=== PATIENT | male | born 1990 | race Caucasian/White ===

== ENCOUNTER 2017-04-28 18:39 | Emergency (ER) | payer OTHER ==
[~2017-04-28 18:39] MED LIST: ABIL30TA5 PO; PROZ20CA11 PO; QUET300XR PO
[2017-04-28 18:49] VITALS: BP 123/68; PULSE 118; RESP 18; TEMP 97.8; O2SAT 96
[2017-04-28] MEDS ORDERED: DEPA500T3 PO (19:17)
[2017-04-28 19:36] LABS: AUTOMATED NEUTROPHIL # 6.5 TH/MM3 (1.8-7.7); BASOPHIL % 0.4 % (0.0-2.0); EOSINOPHIL # 0.1 TH/MM3 (0-0.4); EOSINOPHIL % 0.8 % (0.0-4.0); HEMATOCRIT 41.6 % (39.0-51.0); HEMOGLOBIN 13.6 GM/DL (13.0-17.0); LYMPH % 24.9 % (9.0-44.0); LYMPHOCYTE # 2.3 TH/MM3 (1.0-4.8); MEAN CELL VOLUME 81.9 FL (80.0-100.0); MEAN CORPUSCULAR HEMOGLOBIN 26.9 PG (27.0-34.0); MEAN CORPUSCULAR HGB CONC 32.8 % (32.0-36.0); MONO % 4.8 % (0.0-8.0); MONOCYTE # 0.5 TH/MM3 (0-0.9); NEUT % 69.1 % (16.0-70.0); PLATELET COUNT 288 TH/MM3 (150-450); RED BLOOD COUNT 5.08 MIL/MM3 (4.50-5.90); RED CELL DISTRIBUTION WIDTH 13.3 % (11.6-17.2); WHITE BLOOD COUNT 9.4 TH/MM3 (4.0-11.0)
[2017-04-28] MEDS ORDERED: ARIPiprazole 15 MG TAB PO ONE (19:45)
[2017-04-28 19:50] LABS: ALBUMIN 4.1 GM/DL (3.4-5.0); AST (GOT) 13 U/L (15-37); BICARBONATE 30.3 MEQ/L (21.0-32.0); BLOOD UREA NITROGEN 13 MG/DL (7-18); CALCIUM 9.3 MG/DL (8.5-10.1); CHLORIDE 104 MEQ/L (98-107); CREATININE 0.77 MG/DL (0.60-1.30); GLOMERULAR FILTRATION RATE 122 ML/MIN (>89); GLUCOSE,RANDOM 84 MG/DL (74-106); SODIUM (NA) 138 MEQ/L (136-145)
[2017-04-28 19:51] LABS: ALT (GPT) 19 U/L (12-78)
[2017-04-28 19:53] LABS: ALKALINE PHOSPHATASE 72 U/L (45-117); TOTAL BILIRUBIN ADULT 0.2 MG/DL (0.2-1.0); TOTAL PROTEIN 8.1 GM/DL (6.4-8.2)
--- NOTE | 2017-04-28 20:54 | PD ---
HPI Chief Complaint: Psychiatric Symptoms Time Seen by Provider: 19:51 Travel History International Travel<30 days: No Contact w/Intl Traveler<30days: No Traveled to known affect area: No History of Present Illness HPI 26-year-old male that presents to the ED for evaluation of Turcios act. Patient was Turcios acted by police after apparently he was agitated secondary to not been able to play be against at the [facility] where he sat. Patient is low functioning. Patient has a history of ADHD and anxiety and takes medications for it. He has no other medical issues. He denies any complaints. He is pleasant and very childlike in demeanor. Denies any chest pain or shortness of breath. Denies any suicidal or homicidal ideation. Per patient he wants to play videogames. He tells me he wants to play "call of duty". Symptoms appear to have worsened today secondary to not being allowed to do what he wants. Patient himself is somewhat of a poor historian secondary to his childlike manner. PFSH Past Medical History ADHD: Yes Bipolar Disorder: Yes Anxiety: Yes Developmental Delay: Yes Diabetes: No Patient Takes Glucophage: No Diminished Hearing: No Psychiatric: Yes Immunizations Current: Yes ?: Not Social History Alcohol Use: No Tobacco Use: No Substance Use: No Allergies-Medications (Allergen,Severity, Reaction): Uncoded Allergies: FABRIC SOFTENER (Allergy, Severe, 10/10/12) Reported Meds & Prescriptions Reported Meds & Active Scripts Active Seroquel XR (Quetiapine Fumarate) 300 Mg Tab 300 Mg PO 2 QPM Prozac (Fluoxetine HCl) 20 Mg Cap 20 Mg PO 2 PO QAM Abilify (Aripiprazole) 30 Mg Tab 30 Mg PO 1/2 BID Reported Depakote ER (Divalproex Sodium) 500 Mg Ashley 750 Mg PO HS Review of Systems ROS Limitations: Poor Historian Except as stated in HPI: all other systems reviewed are Neg Physical Exam Exam Limitations: Poor Historian Narrative GENERAL: SKIN: Warm and dry. HEAD: Atraumatic. Normocephalic. EYES: Pupils equal and round. No scleral icterus. No injection or drainage. ENT: No nasal bleeding or discharge. Mucous membranes pink and moist. NECK: Trachea midline. No JVD. CARDIOVASCULAR: Regular rate and rhythm. RESPIRATORY: No accessory muscle use. Clear to auscultation. Breath sounds equal bilaterally. GASTROINTESTINAL: Abdomen soft, non-tender, nondistended. Hepatic and splenic margins not palpable. MUSCULOSKELETAL: Extremities without clubbing, cyanosis, or edema. No obvious deformities. NEUROLOGICAL: Awake and alert. No obvious cranial nerve deficits. Motor grossly within normal limits. Five out of 5 muscle strength in the arms and legs. Normal speech. PSYCHIATRIC: Appropriate mood and affect; insight and judgment normal. Data Data Last Documented VS Vital Signs Date Time Temp Pulse Resp B/P (MAP) Pulse Ox O2 Delivery O2 Flow Rate FiO2 04/28/17 18:49 97.8 118 18 123/68 (86) 96 Orders Orders Complete Blood Count With Diff (04/28/17 19:10) Comprehensive Metabolic Panel (04/28/17 19:10) Urinalysis - C+S If Indicated (04/28/17 19:10) Valproic Acid (Depakene) (04/28/17 19:10) Psych Screen (04/28/17 19:10) Drug Screen, Random Urine (04/28/17 19:10) Alcohol (Ethanol) (04/28/17 19:10) Quetiapine (Seroquel) (04/28/17 21:00) Aripiprazole (Abilify) (04/28/17 19:45) Divalproex Er (Depakote Er) (04/28/17 21:00) Quetiapine (Seroquel) (04/28/17 21:00) Labs Laboratory Tests Test 04/28/17 19:00 White Blood Count 9.4 TH/MM3 Red Blood Count 5.08 MIL/MM3 Hemoglobin 13.6 GM/DL Hematocrit 41.6 % Mean Corpuscular Volume 81.9 FL Mean Corpuscular Hemoglobin 26.9 PG Mean Corpuscular Hemoglobin Concent 32.8 % Red Cell Distribution Width 13.3 % Platelet Count 288 TH/MM3 Mean Platelet Volume 9.0 FL Neutrophils (%) (Auto) 69.1 % Lymphocytes (%) (Auto) 24.9 % Monocytes (%) (Auto) 4.8 % Eosinophils (%) (Auto) 0.8 % Basophils (%) (Auto) 0.4 % Neutrophils # (Auto) 6.5 TH/MM3 Lymphocytes # (Auto) 2.3 TH/MM3 Monocytes # (Auto) 0.5 TH/MM3 Eosinophils # (Auto) 0.1 TH/MM3 Basophils # (Auto) 0.0 TH/MM3 CBC Comment DIFF FINAL Differential Comment Blood Urea Nitrogen 13 MG/DL Creatinine 0.77 MG/DL Random Glucose 84 MG/DL Total Protein 8.1 GM/DL Albumin 4.1 GM/DL Calcium Level 9.3 MG/DL Alkaline Phosphatase 72 U/L Aspartate Amino Transf (AST/SGOT) 13 U/L Alanine Aminotransferase (ALT/SGPT) 19 U/L Total Bilirubin 0.2 MG/DL Sodium Level 138 MEQ/L Potassium Level 4.1 MEQ/L Chloride Level 104 MEQ/L Carbon Dioxide Level 30.3 MEQ/L Anion Gap 4 MEQ/L Estimat Glomerular Filtration Rate 122 ML/MIN Valproic Acid (Depakene) Level 57 MCG/ML Ethyl Alcohol Level LESS THAN 3 MG/DL MDM Medical Decision Making Medical Screen Exam Complete: Yes Emergency Medical Condition: Yes Medical Record Reviewed: Yes Interpretation(s) CBC & BMP Diagram 04/28/17 19:00 Total Protein 8.1, Albumin 4.1, Calcium Level 9.3, Alkaline Phosphatase 72, Aspartate Amino Transf (AST/SGOT) 13 L, Alanine Aminotransferase (ALT/SGPT) 19, Total Bilirubin 0.2 alcohol negative Differential Diagnosis Depression versus suicidal ideation versus anxiety versus adjustment disorder versus mood disorder versus bipolar disorder versus schizophrenia versus paranoid disorder versus psychosis versus substance abuse versus alcohol abuse versus alcohol induced psychosis versus homicidality addition versus cutting versus personality disorder Narrative Course 26-year-old male that presents to the ED for evaluation of psych. Patient was properly examined and was found to have signs and symptoms consistent psychiatric illness. No sign of acute medical distress. Labs were drawn and were negative. Patient was medically cleared. Okay to be seen by psych. Mental health screening was discussed with the patient. Diagnosis Primary Impression: Autism spectrum disorder Vaibhav Hodge Apr 28, 2017 20:54
[2017-04-28] MEDS ORDERED: QUEtiapine FUMARATE 300 MG TAB PO ONE (21:00)
[2017-04-28] MEDS ORDERED: DIVALPROEX SODIUM E.R. 250 MG TAB PO SCH (21:00)
[2017-04-28] MEDS: QUEtiapine FUMARATE 300 MG TAB PO SCH (21:49)
[2017-04-28 21:58] LABS: BACTERIA, URINE RARE /hpf; BILIRUBIN, URINE NEG (NEG); BLOOD, URINE NEG (NEG); GLUCOSE,URINE NEG (NEG); KETONE, URINE NEG (NEG); NITRITE,URINE NEG (NEG); PH, URINE 7.5 (5.0-8.5); SQUAMOUS EPITHELIAL CELL URINE <1 /hpf (0-5); URINE COLOR COLORLESS (YELLW/STRAW); URINE LEUKOCYTE ESTERASE SMALL (NEG)
[2017-04-28 23:00] VITALS: BP 130/70; PULSE 109; RESP 17; TEMP 97.7; O2SAT 100
[2017-04-29 06:53] VITALS: BP 127/59; PULSE 99; RESP 18; TEMP 98; O2SAT 100
[2017-04-29] MEDS: QUEtiapine FUMARATE 300 MG TAB PO SCH (09:04)
[2017-04-29] MEDS ORDERED: QUET1TAB10 PO (09:51)
[2017-04-29] MEDS ORDERED: TRAZ50TA12 PO (09:51)
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
[2017-04-29] MEDS ORDERED: QUEtiapine FUMARATE 300 MG TAB PO ONE (10:15)
--- NOTE | 2017-04-29 10:29 | PD ---
Physical Exam Time Seen by Provider: 10:[address] Guzman evaluated patient, lifted the Turcios act and cleared the patient for discharge. Data Data Last Documented VS Vital Signs Date Time Temp Pulse Resp B/P (MAP) Pulse Ox O2 Delivery O2 Flow Rate FiO2 04/29/17 06:53 98.0 99 18 127/59 (81) 100 Room Air Orders Orders Complete Blood Count With Diff (04/28/17 19:10) Comprehensive Metabolic Panel (04/28/17 19:10) Urinalysis - C+S If Indicated (04/28/17 19:10) Valproic Acid (Depakene) (04/28/17 19:10) Psych Screen (04/28/17 19:10) Drug Screen, Random Urine (04/28/17 19:10) Alcohol (Ethanol) (04/28/17 19:10) Quetiapine (Seroquel) (04/28/17 21:00) Aripiprazole (Abilify) (04/28/17 19:45) Divalproex Er (Depakote Er) (04/28/17 21:00) Quetiapine (Seroquel) (04/28/17 21:00) Diet Regular Basic (04/29/17 Breakfast) Electrocardiogram (04/29/17 ) Quetiapine (Seroquel) (04/29/17 10:15) Labs Laboratory Tests Test 04/28/17 19:00 04/28/17 21:37 White Blood Count 9.4 TH/MM3 Red Blood Count 5.08 MIL/MM3 Hemoglobin 13.6 GM/DL Hematocrit 41.6 % Mean Corpuscular Volume 81.9 FL Mean Corpuscular Hemoglobin 26.9 PG Mean Corpuscular Hemoglobin Concent 32.8 % Red Cell Distribution Width 13.3 % Platelet Count 288 TH/MM3 Mean Platelet Volume 9.0 FL Neutrophils (%) (Auto) 69.1 % Lymphocytes (%) (Auto) 24.9 % Monocytes (%) (Auto) 4.8 % Eosinophils (%) (Auto) 0.8 % Basophils (%) (Auto) 0.4 % Neutrophils # (Auto) 6.5 TH/MM3 Lymphocytes # (Auto) 2.3 TH/MM3 Monocytes # (Auto) 0.5 TH/MM3 Eosinophils # (Auto) 0.1 TH/MM3 Basophils # (Auto) 0.0 TH/MM3 CBC Comment DIFF FINAL Differential Comment Blood Urea Nitrogen 13 MG/DL Creatinine 0.77 MG/DL Random Glucose 84 MG/DL Total Protein 8.1 GM/DL Albumin 4.1 GM/DL Calcium Level 9.3 MG/DL Alkaline Phosphatase 72 U/L Aspartate Amino Transf (AST/SGOT) 13 U/L Alanine Aminotransferase (ALT/SGPT) 19 U/L Total Bilirubin 0.2 MG/DL Sodium Level 138 MEQ/L Potassium Level 4.1 MEQ/L Chloride Level 104 MEQ/L Carbon Dioxide Level 30.3 MEQ/L Anion Gap 4 MEQ/L Estimat Glomerular Filtration Rate 122 ML/MIN Valproic Acid (Depakene) Level 57 MCG/ML Ethyl Alcohol Level LESS THAN 3 MG/DL Urine Color COLORLESS Urine Turbidity CLEAR Urine pH 7.5 Urine Specific [place] 1.002 Urine Protein NEG mg/dL Urine Glucose (UA) NEG mg/dL Urine Ketones NEG mg/dL Urine Occult Blood NEG Urine Nitrite NEG Urine Bilirubin NEG Urine Urobilinogen LESS THAN 2.0 MG/DL Urine Leukocyte Esterase SMALL Urine RBC LESS THAN 1 /hpf Urine WBC LESS THAN 1 /hpf Urine Squamous Epithelial Cells <1 /hpf Urine Bacteria RARE /hpf Microscopic Urinalysis Comment CULT NOT INDICATED Urine Opiates Screen NEG Urine Barbiturates Screen NEG Urine Amphetamines Screen NEG Urine Benzodiazepines Screen NEG Urine Cocaine Screen NEG Urine Cannabinoids Screen NEG MDM Supervised Visit with HIGINIO: No Narrative Course Dr. Guzman evaluated patient, lifted the Turcios act and cleared the patient for discharge. Patient contracts safety. Denies suicidal or homicidal ideations. Patient will be provided community resource packet to [facility] for follow-up. Has friends and family for support. Patient was medically cleared by alternate provider prior to psych screening. Patient has been evaluated by psychiatry and and is now cleared for discharge. Diagnosis Primary Impression: Autism spectrum disorder Referrals: [facility] (Out patient) [facility] Primary Care Physician Psychiatrist [facility] Patient Instructions: General Instructions, Autism Spectrum Disorder (ED) Departure Forms: Tests/Procedures Additional Instruction: Follow up with Dr. Arechiga. Return to ED for any worsening. Med/Other Pt SpecificInfo: No Change to Meds, No Meds Exist/No RX given Scripts Trazodone (Trazodone) 50 Mg Tab 50 MG PO HS for Control Depression, #30 TAB 0 Refills Prov: Radha Guzman MD 04/29/17 Quetiapine (Quetiapine) 300 Mg Tab 300 MG PO 2qam,1qhs, #90 TAB 0 Refills Prov: Radha Guzman MD 04/29/17 Disposition: 01 DISCHARGE HOME Condition: Stable Sridevi Zhou Apr 29, 2017 10:29
[2017-04-29 10:56] VITALS: BP 126/76; PULSE 109; RESP 20; O2SAT 97
--- NOTE | 2017-04-29 19:38 | EKG ---
Date Performed: 04/29/2017 Time Performed: 09:53:03 PTAGE: 26 years EKG: Sinus rhythm NORMAL ECG NO PREVIOUS TRACING DOCTOR: Suzi Price Interpretating Date/Time 04/29/2017 19:38:01
== END 2017-04-29 14:50 | disposition home or self-care (01) ==
LOC: NEDAMB 18:39 → NEPJ 04-29 14:50
DX: F84.0 Autistic disorder (principal); F31.9 Bipolar disorder, unspecified
CPT/HCPCS: 80053; 80164; 80307; 81001; 85025; 93005; 99284